=== PATIENT | female | born 1995 | race Caucasian/White ===

== ENCOUNTER 2020-04-08 19:34 | Emergency (ER) | payer OTHER ==
[~2020-04-08] VITALS: Ht 152.4 cm; Wt 93.0 kg
[2020-04-08 19:44] VITALS: BP 138/79
--- NOTE | 2020-04-08 19:51 | NUR ---
PT AMBULATED TO BED #11
--- NOTE | 2020-04-08 20:21 | NUR ---
Dr. Woodall examining patient.
--- NOTE | 2020-04-08 20:25 | NUR ---
IV STARTED, LABS DRAWN AND AT BEDSIDE
--- NOTE | 2020-04-08 20:38 | NUR ---
PT STATES SHES BEEN HAVING BRIGHT RED BLOOD IN HER STOOL X 2 WEEKS NOW. C/O LOWER ABD CRAMPING, COMES AND GOES, CURRENT PAIN 3/10. HAVING DIARRHEA AND NAUSEA BUT NO VOMITING. AFEBRILE, NO SOB, OR COUGHING. PT STATES IT GETS WORSE AFTER SHE DRINKS ALCOHOL ALSO HAS ESOPHAGEAL BURNING AFTER DRINKING WELL. + BOWEL SOUNDS, MILD TENDERNESS UPON PALPATION. SKIN WARM, DRY, MUCOUS MEMBRANES PINK AND MOIST. PT DENIES DIZZINESS OR WEAKNESS NKA NO MED HX
[2020-04-08 20:49] LABS: BASOPHILS % (AUTO) 0.5 % (0.0-2.0); EOSINOPHILS # (AUTO) 0.1 K/uL (0-0.4); EOSINOPHILS % (AUTO) 1.8 % (0.0-4.0); HEMATOCRIT 42.5 % (36-48); HEMOGLOBIN 14.3 g/dL (12.0-16.0); LYMPHOCYTES # (AUTO) 2.8 K/uL (2.5-16.5); LYMPHOCYTES % (AUTO) 39.3 % (20.5-51.1); MEAN CORPUSCULAR HEMOGLOBIN 32 pg (27-31); MEAN CORPUSCULAR HGB CONC 34 g/dL (33-37); MEAN CORPUSCULAR VOLUME 95.1 fL (80-94); MONOCYTES # (AUTO) 0.5 K/uL (0.8-1.0); MONOCYTES % (AUTO) 6.4 % (1.7-9.3); NEUTROPHILS # (AUTO) 3.7 K/uL (1.8-7.7); PLATELET COUNT (AUTO) 304 K/uL (140-450); RED BLOOD CELL COUNT(AUTO) 4.47 MIL/uL (4.20-5.40); RED CELL DISTRIBUTION WIDTH 13.9 % (11.6-13.7); WHITE BLOOD COUNT (AUTO) 7.1 K/uL (4.8-10.8)
[2020-04-08 21:14] LABS: ANION GAP 14.5 (8-16); CARBON DIOXIDE 27.1 mmol/L (21-32); POTASSIUM 3.6 mmol/L (3.5-5.1); PROTHROMBIN TIME 8.9 secs (10.8-13.4); TOTAL BILIRUBIN 0.3 mg/dL (0.0-1.0)
--- NOTE | 2020-04-08 21:37 | NUR ---
Patient discharged with v/s stable. Written and verbal after care instructions given and explained. Patient verbalized understanding. Ambulatory with steady gait. All questions addressed prior to discharge. Advised to follow up with PMD.
== END 2020-04-08 21:37 | disposition home or self-care (01) ==
LOC: MED 19:34
DX: K92.1 Melena (principal); K29.70 Gastritis, unspecified, without bleeding
CPT/HCPCS: 36415; 80053; 85025; 85610; 85730; 99283

== ENCOUNTER 2020-12-19 08:41 | Emergency (ER) | payer OTHER ==
[~2020-12-19] VITALS: Ht 154.9 cm; Wt 91.6 kg
[2020-12-19 08:49] VITALS: BP 136/68
--- NOTE | 2020-12-19 08:52 | NUR ---
Patient ambulated to bed 7. RN evaluating the patient at bedside.
[2020-12-19] MEDS ORDERED: KETOROLAC 60 MG/2 ML VIAL IM ONE (08:55)
--- NOTE | 2020-12-19 08:55 | NUR ---
25 y/o F brought in from home with c/c back pain. Patient states lower mid back pain x 3 weeks, progressively worsen this past week to where she is unable to sit or walk. Patient states 10/10 burning/constant, radiating to bilateral legs to the knees and suprapubic pain. Pt states associated bilateral hip pain "feels like my hip shifted." Pt reports visit to PCP on Monday12/14/20, prescribed Naproxen and a muscle relaxer that has not helped. Pt states movement worsens the pain and rotating her hip outwards help. Patient denies N/V, dizziness, GANNON, SOB, CP, fever/chills, vision changes. Pt reports diarrhea x 1 week, last BM this morning 0500 brown/liquid. Pt placed onto blood pressure cuff, pulse ox. Bed locked in lowest position, side rails x 1, call light in reach. PMH: HDL "since childhood, denies meds) Meds: naproxen, muscle relaxer NKA Sx: 2018
--- NOTE | 2020-12-19 09:10 | NUR ---
Dr. Choudhary is evaluating patient at bedside.
--- NOTE | 2020-12-19 09:35 | NUR ---
Patient resting in position of comfort; reports pain 6/10 at this time with movement. Denies any nausea. All pt needs met at this time. Bed locked in lowest position, side rails x 1.
[2020-12-19] MEDS ORDERED: ACET-8386 PO (09:52)
[2020-12-19 09:57] VITALS: BP 136/68
--- NOTE | 2020-12-19 09:57 | NUR ---
Patient discharged with v/s stable. Written and verbal after care instructions given and explained. Patient alert, oriented and verbalized understanding of instructions. Ambulatory with steady gait. All questions addressed prior to discharge. ID band removed. Patient advised to follow up with PMD. Rx of Hydrocodone/Acetaminophen given. Patient educated on indication of medication including possible reaction and side effects. Opportunity to ask questions provided and answered.
== END 2020-12-19 09:57 | disposition home or self-care (01) ==
LOC: MED 08:41
DX: M54.5 Low back pain (principal); F12.10 Cannabis abuse, uncomplicated
CPT/HCPCS: 81002; 81025; 96372; 99283; J1885

== ENCOUNTER 2021-12-09 21:19 | Emergency (ER) | payer OTHER ==
[~2021-12-09] VITALS: Ht 154.9 cm; Wt 85.5 kg
[~2021-12-09 21:19] MED LIST: ACET-8386 PO
[2021-12-09 21:39] VITALS: BP 135/62
--- NOTE | 2021-12-10 00:25 | NUR ---
CALLED TO ROOM. NO ANSWER
--- NOTE | 2021-12-10 00:35 | NUR ---
CALLED, NO ANSWER. LWBS
[2021-12-10 00:43] VITALS: BP 135/62
== END 2021-12-10 00:35 | disposition left against medical advice (07) ==
LOC: MED 21:19
DX: G89.18 Other acute postprocedural pain (principal); Z53.21 Procedure and treatment not carried out due to patient leaving prior to being seen by health care provider

== ENCOUNTER 2022-05-24 01:25 | Emergency (ER) | payer OTHER ==
[~2022-05-24] VITALS: Ht 154.9 cm; Wt 80.7 kg
[2022-05-24 01:32] VITALS: BP 114/65
[2022-05-24 01:54] LABS: APPEARANCE,URINE CLEAR (CLEAR); BILIRUBIN,URINE NEGATIVE (NEGATIVE); BLOOD, URINE NEGATIVE (NEGATIVE); COLOR,URINE YELLOW (YELLOW); LEUKOCYTE ESTERASE ,URINE NEGATIVE (NEGATIVE); NITRITE, URINE NEGATIVE (NEGATIVE); UGLUCOSE NEGATIVE (NEGATIVE)
[2022-05-24 01:56] LABS: BASOPHILS # (AUTO) 0.1 K/uL (0.00-0.22); BASOPHILS % (AUTO) 0.7 % (0.0-2.0); EOSINOPHILS # (AUTO) 0.1 K/uL (0-0.4); EOSINOPHILS % (AUTO) 0.9 % (0.0-4.0); HEMATOCRIT 38.3 % (36-48); HEMOGLOBIN 12.8 g/dL (12.0-16.0); LYMPHOCYTES # (AUTO) 4.3 K/uL (2.5-16.5); LYMPHOCYTES % (AUTO) 41.5 % (20.5-51.1); MEAN CORPUSCULAR HEMOGLOBIN 31 pg (27-31); MEAN CORPUSCULAR HGB CONC 33 g/dL (33-37); MEAN CORPUSCULAR VOLUME 93.5 fL (80-94); MONOCYTES # (AUTO) 0.5 K/uL (0.8-1.0); MONOCYTES % (AUTO) 5.3 % (1.7-9.3); NEUTROPHILS # (AUTO) 5.3 K/uL (1.8-7.7); NEUTROPHILS % (AUTO) 51.6 % (42.2-75.2); PLATELET COUNT (AUTO) 263 K/uL (140-450); RED CELL DISTRIBUTION WIDTH 13.8 % (11.6-13.7); WHITE BLOOD COUNT (AUTO) 10.4 K/uL (4.8-10.8)
[2022-05-24 02:14] LABS: ALBUMIN 3.9 g/dL (3.4-5.0); ANION GAP 12.7 (8-16); CARBON DIOXIDE 28.6 mmol/L (21-32); CREATININE 0.6 mg/dL (0.6-1.3); POTASSIUM 3.3 mmol/L (3.5-5.1); TOTAL BILIRUBIN 0.3 mg/dL (0.0-1.0)
--- NOTE | 2022-05-24 02:25 | NUR ---
Patient ambulated to bed 2.
--- NOTE | 2022-05-24 03:00 | NUR ---
ASSUME CARE OF PT, PT C/O LOWER ABD PAIN X 5 DAYS, DENIES ANY URINARY PROBLEMS, PT STATES HAVING A OVARIAN CYST. DENIES ANY MEDICAL HISTORY.
--- NOTE | 2022-05-24 03:05 | NUR ---
PLACED PT ON MONITOR, WAITING FOR RE EVAL.
[2022-05-24] MEDS ORDERED: ONDANSETRON 4 MG/2 ML VIAL IVP ONE (05:40)
[2022-05-24] MEDS ORDERED: MORPHINE SULFATE 4 MG/ML SYR IVP ONE (05:40)
--- NOTE | 2022-05-24 05:54 | NUR ---
PT TO CT SCAN
--- NOTE | 2022-05-24 06:06 | NUR ---
PT BACK FROM CT, PLACED ON MONITOR, PT STATES PAIN HAS REDUCED.
--- NOTE | 2022-05-24 06:30 | NUR ---
PT RESTING IN BED, STATES PAIN HAS REDUCE, FEELS BETTER.
--- NOTE | 2022-05-24 07:17 | NUR ---
REPORT RECEIVED FROM MICKY ARREOLA, TRANSFER OF CARE AT THIS TIME
--- NOTE | 2022-05-24 08:08 | NUR ---
Recieved report from ELBA Mahan for transfer of care.
--- NOTE | 2022-05-24 08:10 | NUR ---
REPORT TO JAYLENE BOUDREAUX TRANSFER OF CARE AT THIS TIME
[2022-05-24] MEDS ORDERED: IBUP-2213 PO (08:15)
[2022-05-24] MEDS ORDERED: BEN10 PO (08:15)
[2022-05-24] MEDS ORDERED: ONDA-188 PO (08:16)
--- NOTE | 2022-05-24 08:25 | NUR ---
Dr. Mcwilliams evaluating patient at bedside.
[2022-05-24 08:37] VITALS: BP 101/66
--- NOTE | 2022-05-24 08:37 | NUR ---
Patient discharged with v/s stable. Written and verbal after care instructions given. Patient alert, oriented and verbalized understanding of instructions. Ambulatory with steady gait. All questions addressed prior to discharge. ID band removed. Patient advised to follow up with PMD. Rx of Bentyl, Ibuprofen and Zofran given. Opportunity to ask questions provided and answered.
== END 2022-05-24 08:37 | disposition home or self-care (01) ==
LOC: MED 01:25
DX: R10.30 Lower abdominal pain, unspecified (principal)
CPT/HCPCS: 36415; 74177; 80053; 81003; 84702; 85025; 96374; 96375; 99285; J2270; J2405; Q9967

== ENCOUNTER 2022-10-29 05:32 | Emergency (ER) | payer OTHER ==
[~2022-10-29] VITALS: Ht 154.9 cm; Wt 79.4 kg
[~2022-10-29 05:32] MED LIST changes: -ACET-8386 PO; +ACET-8905 PO; +BEN10 PO; +IBUP-2213 PO; +ONDA-188 PO
[2022-10-29 05:35] VITALS: BP 120/64
--- NOTE | 2022-10-29 05:35 | NUR ---
to bed ambulatory
--- NOTE | 2022-10-29 05:45 | NUR ---
lower back pain, since yvette
[2022-10-29] MEDS ORDERED: KETOROLAC 60 MG/2 ML VIAL IM ONE (06:20)
--- NOTE | 2022-10-29 08:06 | NUR ---
SLEEPING, NO AC DISTRESS, 02 SAT 98% RA , SR UP TIMES 2
[2022-10-29] MEDS ORDERED: LID5T TP (09:10)
[2022-10-29] MEDS ORDERED: TRAM50TA3 PO (09:10)
[2022-10-29 09:25] VITALS: BP 110/65
--- NOTE | 2022-10-29 09:25 | NUR ---
Patient discharged with v/s stable. Written and verbal after care instructions given and explained. Patient verbalized understanding. Ambulatory with steady gait. All questions addressed prior to discharge. Advised to follow up with PMD. LOWER BACK PAIN 11/04
== END 2022-10-29 09:25 | disposition home or self-care (01) ==
LOC: MED 05:32
DX: S39.012A Strain of muscle, fascia and tendon of lower back, initial encounter (principal); M25.551 Pain in right hip; Z79.899 Other long term (current) drug therapy; X58.XXXA Exposure to other specified factors, initial encounter; Y93.89 Activity, other specified; Y92.89 Other specified places as the place of occurrence of the external cause; Y99.8 Other external cause status
CPT/HCPCS: 72100; 73502; 81025; 96372; 99284; J1885